=== PATIENT | female | born 1980 | race Caucasian/White ===

== ENCOUNTER 2018-12-06 08:15 | Emergency (ER) | payer MEDICAID ==
[~2018-12-06] VITALS: Ht 160 cm; Wt 77.1 kg
[2018-12-06] MEDS ORDERED: MAG HYDROX/AL HYDROX/SIMETH 30 ML, DICYCLOMINE HCL 20 MG, LIDOCAINE VISCOUS 2% 15ML (PO... PO ONE ×3 (08:30)
[2018-12-06 08:51] LABS: BILIRUBIN,URINE NEGATIVE (NEGATIVE); BLOOD, URINE 3+ (NEGATIVE); CLARITY/URINE SL CLOUDY (CLEAR); COLOR,URINE YELLOW (YELLOW); GLUCOSE,URINE NEGATIVE (NEGATIVE); KETONES,URINE NEGATIVE (NEGATIVE); LEUKOCYTE ESTERASE ,URINE TRACE (NEGATIVE); NITRITE, URINE POSITIVE (NEGATIVE); PH,URINE 6.5 (5.0-8.0); PROTEIN URINE 1+ (NEGATIVE)
[2018-12-06 08:54] LABS: BASOPHILS # (AUTO) 0.1 K/uL (0.0-0.2); BASOPHILS % (AUTO) 0.8 % (0.0-2.0); EOSINOPHILS # (AUTO) 0.1 K/uL (0.0-0.4); EOSINOPHILS % (AUTO) 1.8 % (0.0-4.0); HEMATOCRIT 38.2 % (36-48); HEMOGLOBIN 12.9 g/dL (12.0-16.0); LYMPHOCYTES # (AUTO) 1.8 K/uL (1.0-5.5); LYMPHOCYTES % (AUTO) 26.8 % (20.5-51.5); MEAN CORPUSCULAR HEMOGLOBIN 31 pg (27-31); MEAN CORPUSCULAR HGB CONC 34 % (32-36); MEAN CORPUSCULAR VOLUME 91 fL (79.0-98.0); MONOCYTES # (AUTO) 0.4 K/uL (0.0-1.0); MONOCYTES % (AUTO) 6.8 % (1.7-9.3); NEUTROPHILS # (AUTO) 4.2 K/uL (1.8-7.7); NEUTROPHILS % (AUTO) 63.8 % (40.0-70.0); PLATELET COUNT (AUTO) 322 K/uL (130-430); RED BLOOD CELL COUNT(AUTO) 4.19 MIL/uL (4.2-6.2); RED CELL DISTRIBUTION WIDTH 12.7 % (9.0-15.0); WHITE BLOOD COUNT (AUTO) 6.6 K/uL (4.8-10.8)
[2018-12-06 09:06] LABS: BACTERIA,URINE MANY /HPF (None Seen); RBC,URINE 20-50 /HPF (0-3)
[2018-12-06 09:14] LABS: ANION GAP 8 (5-15); CALCIUM 8.2 mg/dL (8.4-11.0); CHLORIDE 105 mmol/L (98-107); CREATININE 0.69 mg/dL (0.55-1.30); GLUCOSE 93 mg/dL (70-99); POTASSIUM 3.8 mmol/L (3.5-5.1); SODIUM SERUM 137 mmol/L (136-145); UREA NITROGEN, BLOOD 10 mg/dL (8-21)
[2018-12-06 09:18] LABS: GFR AFRICAN AMERICAN 124 mL/min (>90)
[2018-12-06 09:23] LABS: ALANINE AMINOTRANSFERASE 17 U/L (12-78); ALBUMIN 3.5 g/dL (3.4-4.8); ASPARTATE AMINOTRANSFERASE 16 U/L (10-37); LIPASE 118 U/L (73-393); TOTAL BILIRUBIN 0.4 mg/dL (0.0-1.0)
[2018-12-06 09:51] VITALS: BP_SYST 140
== END 2018-12-06 09:54 | disposition home or self-care (01) ==
LOC: SED 08:15
DX: F41.9 Anxiety disorder, unspecified (principal); K21.9 Gastro-esophageal reflux disease without esophagitis; N39.0 Urinary tract infection, site not specified; I10 Essential (primary) hypertension
CPT/HCPCS: 36415; 71046; 80053; 81000; 83690; 84484; 85025; 87086; 87186; 93005; 99284; J2001

== ENCOUNTER 2022-09-03 15:00 | Inpatient (IN) | payer MEDICAID ==
[~2022-09-03] VITALS: Ht 162.6 cm; Wt 95.3 kg
[2022-09-03 15:50] VITALS: BP_SYST 106; PULSE 104; RESP 16; TEMP 97.8; O2SAT 98
[2022-09-03] MEDS ORDERED: ONDANSETRON 4 MG ODT TAB PO ONE (17:45)
[2022-09-03] MEDS ORDERED: cefTRIAXone 1 GM in LIDOCAINE 1%, 20 ML MDV 2.1 ML IM ONE (17:45)
[2022-09-03] MEDS ORDERED: KETOROLAC TROMETHAMINE 30 MG VIAL IM ONE (17:45)
[2022-09-03 18:18] LABS: BILIRUBIN,URINE 2+ (NEGATIVE); CLARITY/URINE CLOUDY (CLEAR); GLUCOSE,URINE 1+ (NEGATIVE); KETONES,URINE 2+ (NEGATIVE); LEUKOCYTE ESTERASE ,URINE TRACE (NEGATIVE); PROTEIN URINE 3+ (NEGATIVE)
[2022-09-03 18:23] LABS: BASOPHILS % (AUTO) 0.2 % (0.0-2.0); EOSINOPHILS % (AUTO) 0.1 % (0.0-4.0); HEMATOCRIT 38.6 % (36-48); HEMOGLOBIN 12.7 g/dL (12.0-16.0); LYMPHOCYTES % (AUTO) 7.7 % (20.5-51.5); MEAN CORPUSCULAR HEMOGLOBIN 30 pg (27-31); MEAN CORPUSCULAR HGB CONC 33 % (32-36); MEAN CORPUSCULAR VOLUME 90 fL (79.0-98.0); MONOCYTES # (AUTO) 0.9 K/uL (0.0-1.0); NEUTROPHILS # (AUTO) 11.3 K/uL (1.8-7.7); PLATELET COUNT (AUTO) 268 K/uL (130-430); RED BLOOD CELL COUNT(AUTO) 4.29 MIL/uL (4.2-6.2); RED CELL DISTRIBUTION WIDTH 12.5 % (9.0-15.0); WHITE BLOOD COUNT (AUTO) 13.3 K/uL (4.8-10.8)
[2022-09-03 18:27] LABS: BLOOD, URINE TRACE (NEGATIVE); UROBILINOGEN,URINE >=8 (0.2-1.0)
[2022-09-03 18:29] LABS: NITRITE, URINE POSITIVE (NEGATIVE)
[2022-09-03 18:30] LABS: COLOR,URINE ORANGE (YELLOW)
[2022-09-03 18:43] LABS: CALCIUM 8.5 mg/dL (8.4-11.0); CREATININE 0.86 mg/dL (0.55-1.30); TOTAL BILIRUBIN 0.5 mg/dL (0.0-1.0)
[2022-09-03 18:58] LABS: ALBUMIN 3.2 g/dL (3.4-4.8)
[2022-09-03 18:59] LABS: BACTERIA,URINE MODERATE /HPF (None Seen)
[2022-09-03] MEDS ORDERED: NACL 0.9% 1,000 ML IV ONE ×2 (19:45→20:15)
[2022-09-03] MEDS ORDERED: MORPHINE 2 MG/ML INJ. SYRINGE IVP ONE (20:00)
[2022-09-03] MEDS ORDERED: ONDANSETRON HCL 4 MG/2 ML VIAL IVP ONE (20:00)
[2022-09-03] MEDS ORDERED: D5/0.45 NS 1,000 ML IV ONE (20:30)
[2022-09-04 00:30] VITALS: BP_SYST 118; PULSE 92; RESP 20; TEMP 97.9; O2SAT 98
[2022-09-04 00:35] VITALS: BP_SYST 118; PULSE 92; RESP 20; TEMP 97.9
[2022-09-04 01:02] VITALS: O2SAT 98
[2022-09-04] MEDS ORDERED: ONDANSETRON HCL 4 MG/2 ML VIAL IVP PRN (01:15)
[2022-09-04] MEDS: ACETAMINOPHEN 500 MG TABLET PO PRN ×2 (01:54→20:33)
[2022-09-04] MEDS: D5/0.45 NS 1,000 ML IV SCH ×4 (01:55→20:34)
[2022-09-04 06:43] LABS: BASOPHILS % (AUTO) 0.4 % (0.0-2.0); EOSINOPHILS % (AUTO) 0.3 % (0.0-4.0); HEMATOCRIT 31.5 % (36-48); HEMOGLOBIN 10.6 g/dL (12.0-16.0); LYMPHOCYTES # (AUTO) 1.7 K/uL (1.0-5.5); LYMPHOCYTES % (AUTO) 16.4 % (20.5-51.5); MEAN CORPUSCULAR HEMOGLOBIN 30 pg (27-31); MEAN CORPUSCULAR HGB CONC 34 % (32-36); MEAN CORPUSCULAR VOLUME 89 fL (79.0-98.0); MONOCYTES # (AUTO) 1.3 K/uL (0.0-1.0); MONOCYTES % (AUTO) 12.4 % (1.7-9.3); NEUTROPHILS # (AUTO) 7.2 K/uL (1.8-7.7); NEUTROPHILS % (AUTO) 70.5 % (40.0-70.0); PLATELET COUNT (AUTO) 237 K/uL (130-430); RED BLOOD CELL COUNT(AUTO) 3.55 MIL/uL (4.2-6.2); RED CELL DISTRIBUTION WIDTH 12.4 % (9.0-15.0); WHITE BLOOD COUNT (AUTO) 10.2 K/uL (4.8-10.8)
[2022-09-04 08:00] VITALS: BP_SYST 121; PULSE 96; RESP 18; TEMP 98.3; O2SAT 99
[2022-09-04 16:00] VITALS: BP_SYST 130; PULSE 85; RESP 16; TEMP 97.3; O2SAT 100
[2022-09-04 20:00] VITALS: BP_SYST 122; PULSE 59; RESP 20; TEMP 98.4; O2SAT 95
[2022-09-05] MEDS: cefTRIAXone 1 GM in D5W 50 ML IV SCH (00:31)
[2022-09-05 01:03] VITALS: BP_SYST 119; PULSE 79; RESP 16; TEMP 98.7; O2SAT 99
[2022-09-05 01:54] VITALS: BP_SYST 122; PULSE 59; RESP 20; TEMP 98.4; O2SAT 95
[2022-09-05] MEDS: D5/0.45 NS 1,000 ML IV SCH ×2 (05:47→18:02)
[2022-09-05 07:20] LABS: BASOPHILS # (AUTO) 0.1 K/uL (0.0-0.2); BASOPHILS % (AUTO) 0.9 % (0.0-2.0); EOSINOPHILS # (AUTO) 0.1 K/uL (0.0-0.4); EOSINOPHILS % (AUTO) 1.5 % (0.0-4.0); HEMATOCRIT 33.2 % (36-48); HEMOGLOBIN 11.1 g/dL (12.0-16.0); LYMPHOCYTES # (AUTO) 1.8 K/uL (1.0-5.5); LYMPHOCYTES % (AUTO) 28.6 % (20.5-51.5); MEAN CORPUSCULAR HEMOGLOBIN 30 pg (27-31); MEAN CORPUSCULAR HGB CONC 34 % (32-36); MEAN CORPUSCULAR VOLUME 90 fL (79.0-98.0); MONOCYTES # (AUTO) 0.8 K/uL (0.0-1.0); MONOCYTES % (AUTO) 12.9 % (1.7-9.3); NEUTROPHILS # (AUTO) 3.6 K/uL (1.8-7.7); NEUTROPHILS % (AUTO) 56.1 % (40.0-70.0); PLATELET COUNT (AUTO) 298 K/uL (130-430); RED CELL DISTRIBUTION WIDTH 12.7 % (9.0-15.0); WHITE BLOOD COUNT (AUTO) 6.5 K/uL (4.8-10.8)
[2022-09-05 07:36] LABS: CALCIUM 7.5 mg/dL (8.4-11.0); CREATININE 0.6 mg/dL (0.55-1.30)
[2022-09-05 08:00] VITALS: BP_SYST 111; PULSE 83; RESP 18; TEMP 97.3; O2SAT 100
[2022-09-05 12:41] VITALS: BP_SYST 107; PULSE 83; RESP 18; TEMP 97.4; O2SAT 100
[2022-09-05 16:15] VITALS: BP_SYST 112; PULSE 72; RESP 20; TEMP 97.4; O2SAT 99
[2022-09-05 20:00] VITALS: BP_SYST 126; PULSE 69; RESP 18; TEMP 97.7; O2SAT 99
[2022-09-06] VITALS: BP_SYST 101; PULSE 68; RESP 16; TEMP 97.8; O2SAT 99
[2022-09-06] MEDS: D5/0.45 NS 1,000 ML IV SCH ×2 (04:53→09:57)
[2022-09-06] MEDS: cefTRIAXone 1 GM in D5W 50 ML IV SCH (04:54)
[2022-09-06 08:12] VITALS: BP_SYST 131; PULSE 74; RESP 18; TEMP 96.4; O2SAT 98
[2022-09-06 08:45] VITALS: O2SAT 100
[2022-09-06] MEDS ORDERED: LEVO250T73 PO (11:19)
[2022-09-06 12:38] VITALS: BP_SYST 136; PULSE 87; RESP 18; TEMP 97.5; O2SAT 100
[2022-09-06 13:11] VITALS: BP_SYST 136; PULSE 87; RESP 18; TEMP 97.5; O2SAT 100
== END 2022-09-06 13:10 | disposition home or self-care (01) | DRG 463 ==
LOC: SED 15:00 → SMU 21:24
PROVIDERS: ADMIT Specialist; ATTEND Specialist
DX: N12 Tubulo-interstitial nephritis, not specified as acute or chronic (principal); E44.1 Mild protein-calorie malnutrition; E86.0 Dehydration; E66.01 Morbid (severe) obesity due to excess calories; M54.9 Dorsalgia, unspecified; F41.9 Anxiety disorder, unspecified; Z68.36 Body mass index [BMI] 36.0-36.9, adult
CPT/HCPCS: 36415; 76770; 80048; 80053; 81000; 83605; 85025; 87040; 87086; 96361; 96372; 96374; 96375; 99291; J0696; J1885; J2001; J2270; J2405; J7030; J7042; J7060; Q0162